=== PATIENT | female | born 2000 | race Hispanic/Latino ===

== ENCOUNTER 2021-03-12 20:29 | Emergency (ER) | payer SELFPAY ==
[2021-03-12] MEDS ORDERED: Ibuprofen 200 MG TAB ONE ×2 (22:25→22:29)
[2021-03-12] MEDS ORDERED: Acetaminophen 500 MG TAB ONE (22:25)
== END 2021-03-12 22:29 | disposition home or self-care (01) ==
LOC: ERS 20:29
DX: L73.9 Follicular disorder, unspecified (principal); J45.909 Unspecified asthma, uncomplicated
CPT/HCPCS: 99282

== ENCOUNTER 2022-12-10 07:11 | Emergency (ER) | payer OTHER ==
[2022-12-10] MEDS ORDERED: predniSONE 20 MG TAB ONE (08:24)
[2022-12-10] MEDS ORDERED: Albuterol 200 PUFF INH ONE (08:29)
== END 2022-12-10 08:31 | disposition home or self-care (01) ==
LOC: ERS 07:11
DX: J45.901 Unspecified asthma with (acute) exacerbation (principal)
CPT/HCPCS: 94664; J7512

== ENCOUNTER 2023-10-09 14:10 | Outpatient (CLI) | payer OTHER | END 2023-10-09 14:11 | disposition home or self-care (01) | LOC: SCSRAD 14:10 | PROVIDERS: ATTEND Nurse Practitioner Family | DX: S99.922A Unspecified injury of left foot, initial encounter (principal) ==